=== PATIENT | female | born 1955 | race Caucasian/White ===

== ENCOUNTER 2025-06-01 13:39 | Outpatient (OUT) | payer MEDICARE, OTHER, SELFPAY ==
--- NOTE | 2025-06-01 13:46 | ECG_ITS ---
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 Measurements Intervals [place] Rate: 81 P: 56 NV: 159 QRS: 6 QRSD: 94 T: 34 QT: 341 QTc: 398 Interpretive Statements SINUS RHYTHM POSSIBLE LEFT ATRIAL ENLARGEMENT [-0.1mV P WAVE IN V1/V2] Borderline ECG Compared to ECG 05/31/2021 11:06:29 Myocardial infarct finding no longer present Electronically Signed On 06-01-2025 18:05:46 EDT by GIOVANNA ASTORGA M.D.
[2025-06-01 14:38] LABS: Hematocrit 46.8 % (36.0-48.0); Hemoglobin 15.4 g/dL (12.0-16.0); Immature Granulocytes Abs Auto 0.04 10^3/uL (0.00-0.03); Immature Granulocytes Pct Auto 0.5 % (0.0-0.5); Lymphocytes Absolute Auto 2.5 10^3/uL (1.2-3.8); Mean Corpuscular HGB Conc 32.9 g/dL (29.9-35.2); Mean Corpuscular Hemoglobin 32.6 pg (26.7-34.0); Mean Corpuscular Volume 98.9 fL (81.0-99.0); Platelet Count 182 10^3/uL (150-450); Red Blood Count 4.73 10^6/uL (4.20-5.40); White Blood Count 8.7 10^3/uL (4.0-11.0)
--- NOTE | 2025-06-01 14:43 | PM.PRESUREVA ---
History of Present Illness History of Present Illness Chief complaint: Bilateral Kidney Stones Narrative: Mrs. Dutta is a pleasant 69-year-old female who presents presurgical testing with complaints of bilateral flank pain and bilateral kidney stone. She is scheduled for cystoscopy, left RGP, left ureteroscopy, laser, possible left stent placement for a left kidney stone this is scheduled with Dr. Chu on June 10, 2025. She is then scheduled on June 17, 2025 for cystoscopy, right RG, right ureter, laser, left stent removal, right possible stent placement for a right kidney stone with Dr. Chu. Review of Systems ROS Narrative REVIEW OF SYSTEMS: Negative except as stated in HPI, ten or more systems reviewed. Constitutional: No fever, chills, weakness ENT: No sore throat or epistaxis Cardiovascular: No edema, chest pain, palpitations, or activity intolerance Respiratory: No shortness of breath, cough, or wheezing Musculoskeletal: No joint pain or swelling Gastrointestinal: No abdominal pain, constipation, diarrhea, or vomiting Genitourinary: No dysuria or hematuria, bilateral flank pain and mild CVA tenderness Neurological: No numbness, tingling, weakness, or headache Psychiatric: No mood changes PFSH [facility] Medical History (Updated 06/01/25 @ 13:40 by Marianne Schneider) Hypertension ?I10 - Essential (primary) hypertension (ICD-10) Cerumen impaction ?H61.20 - Impacted cerumen, unspecified ear (ICD-10) Smoker ?F17.200 - Nicotine dependence, unspecified, uncomplicated (ICD-10) History of UTI ?Z87.440 - Personal history of urinary (tract) infections (ICD-10) History of kidney stones ?Z87.442 - Personal history of urinary calculi (ICD-10) History of gout ?Z87.39 - Personal history of other diseases of the musculoskeletal system and connective tissue (ICD-10) Depression ?F32.A - Depression, unspecified (ICD-10) Bipolar disorder ?F31.9 - Bipolar disorder, unspecified (ICD-10) Anxiety ?F41.9 - Anxiety disorder, unspecified (ICD-10) Surgical History (Updated 06/01/25 @ 13:40 by Marianne Schneider) History of insertion of nephrostomy tube ?Z98.890 - Other specified postprocedural states (ICD-10) History of lithotripsy ?Z98.890 - Other specified postprocedural states (ICD-10) History of cryosurgery ?Z98.890 - Other specified postprocedural states (ICD-10) History of cystoscopy ?Z98.890 - Other specified postprocedural states (ICD-10) Family History (Updated 06/01/25 @ 14:35 by Marianne Schneider) Mother Family history of hypertension Other Family history of Alzheimer's disease Family history of diabetes mellitus Family history of prostate cancer Social History (Updated 06/01/25 @ 14:35 by Marianne Schneider) Within the past year, how often did you have a drink containing alcohol: never Score interpretation: A score less than 3 is consistent with normal alcohol consumption. Smoking status: Current every day smoker Non-prescribed substance use: denies use Previous occupational history: [employer] Highest level of school completed/degree received: high school graduate Meds Home Medications and Allergies Home Medications ?Medication ?Instructions ?Recorded ?Confirmed ?Type duloxetine 20 mg capsule,delayed 60 mg PO DAILY 06/01/25 06/01/25 History release Allergies Allergy/AdvReac Type Severity Reaction Status Date / Time cimetidine (From [employer]) Allergy Intermediate swelling Verified 06/01/25 14:25 contrast dye Allergy Intermediate Rash Uncoded 06/01/25 14:25 Exam Narrative Exam Narrative: Constitutional: Awake, alert, comfortable, well-appearing, nontoxic, interactive, vital signs as charted Head: Normocephalic, atraumatic Eyes: Conjunctiva and lids normal to inspection, pupils normal ENT: Tympanic membranes pearly alarcon, nonerythematous, noninjected, naris patent, posterior oropharynx clear, oral mucosa moist Neck: Supple, normal appearance, normal range of motion, no meningeal signs, no lymphadenopathy Respiratory: No respiratory distress, breath sounds clear Cardiovascular: Regular rate and rhythm, strong and regular heart tones Abdomen: Nontender, normal bowel sounds, soft, mild bilateral CVA tenderness Musculoskeletal: Normal gait, no swelling or edema Skin: No rashes or induration, no lesions, only visible skin inspected Neuro: No neurological deficits, normal sensation Psychiatric: Oriented ?3, normal affect Assessment and Plan Assessment and Plan (1) Renal calculus, right: (2) Renal calculus, left: Plan Patient is scheduled for cystoscopy left RG, left ureteroscopic, laser, possible left stent placement on 06/10/2025 for left kidney stone. Patient is scheduled for cystoscopy right RG, right ureter, laser, left stent removal right stent placement possible on June 17, 2025 for right kidney stone with Dr. Chu
--- NOTE | 2025-06-01 14:50 | PM.PRESUREVA ---
History of Present Illness History of Present Illness Chief complaint: [facility] Kid[facility] Medical History (Updated 06/01/25 @ 13:40 by Marianne Schneider) Hypertension ?I10 - Essential (primary) hypertension (ICD-10) Cerumen impaction ?H61.20 - Impacted cerumen, unspecified ear (ICD-10) Smoker ?F17.200 - Nicotine dependence, unspecified, uncomplicated (ICD-10) History of UTI ?Z87.440 - Personal history of urinary (tract) infections (ICD-10) History of kidney stones ?Z87.442 - Personal history of urinary calculi (ICD-10) History of gout ?Z87.39 - Personal history of other diseases of the musculoskeletal system and connective tissue (ICD-10) Depression ?F32.A - Depression, unspecified (ICD-10) Bipolar disorder ?F31.9 - Bipolar disorder, unspecified (ICD-10) Anxiety ?F41.9 - Anxiety disorder, unspecified (ICD-10) Surgical History (Updated 06/01/25 @ 13:40 by Marianne Schneider) History of insertion of nephrostomy tube ?Z98.890 - Other specified postprocedural states (ICD-10) History of lithotripsy ?Z98.890 - Other specified postprocedural states (ICD-10) History of cryosurgery ?Z98.890 - Other specified postprocedural states (ICD-10) History of cystoscopy ?Z98.890 - Other specified postprocedural states (ICD-10) Family History (Updated 06/01/25 @ 14:35 by Marianne Schneider) Mother Family history of hypertension Other Family history of Alzheimer's disease Family history of diabetes mellitus Family history of prostate cancer Social History (Updated 06/01/25 @ 14:35 by Marianne Schneider) Within the past year, how often did you have a drink containing alcohol: never Score interpretation: A score less than 3 is consistent with normal alcohol consumption. Smoking status: Current every day smoker Non-prescribed substance use: denies use Previous occupational history: [employer] Highest level of school completed/degree received: high school graduate Meds Home Medications and Allergies Home Medications ?Medication ?Instructions ?Recorded ?Confirmed ?Type duloxetine 20 mg capsule,delayed 60 mg PO DAILY 06/01/25 06/01/25 History release Allergies Allergy/AdvReac Type Severity Reaction Status Date / Time cimetidine (From Tagamet) Allergy Intermediate swelling Verified 06/01/25 14:25 contrast dye Allergy Intermediate Rash Uncoded 06/01/25 14:25 Assessment and Plan Assessment and Plan (1) Renal calculus, right: (2) Renal calculus, left: Plan Patient is scheduled for cystoscopy left RG, left ureteroscopic, laser, possible left stent placement on 06/10/2025 for left kidney stone. Patient is scheduled for cystoscopy right RG, right ureter, laser, left stent removal right stent placement possible on June 17, 2025 for right kidney stone with Dr. Chu
[2025-06-01 14:51] LABS: INR 0.96; Partial Thromboplastin Time 26.9 sec (22.3-36.2); Prothrombin Time 10.2 sec (9.0-11.6)
[2025-06-01 15:32] LABS: Anion Gap 13.7; Blood Urea Nitrogen 19.0 mg/dL (7.0-18.0); Calcium 11.4 mg/dL (8.5-10.1); Carbon Dioxide 23.7 mmol/L (21.0-32.0); Chloride 109 mmol/L (98-107); Estimated GFR (African America >60 (>=60 mL/min/1.73m^2); Estimated GFR (Non-African Ame 54 (>=60 mL/min/1.73m^2); Glucose 92 mg/dL (74-106); Potassium 4.4 mmol/L (3.5-5.1); Sodium 142 mmol/L (136-145)
== END 2025-06-01 13:40 | disposition home or self-care (01) ==
LOC: PST 13:42
PROVIDERS: PCP Physician Assistant; Visit Provider Urology
DX: Z01.810 Encounter for preprocedural cardiovascular examination (principal); Z01.812 Encounter for preprocedural laboratory examination; Z01.818 Encounter for other preprocedural examination; N20.0 Calculus of kidney
CPT/HCPCS: 36415; 80048; 85025; 85610; 85730; 93005; G0463

== ENCOUNTER 2025-06-01 13:55 | Outpatient (OUT) | payer MEDICARE, OTHER, SELFPAY | END 2025-06-01 13:56 | disposition home or self-care (01) | LOC: PST 13:55 | PROVIDERS: PCP Physician Assistant; Visit Provider Urology | DX: Z01.818 Encounter for other preprocedural examination (principal); N20.0 Calculus of kidney ==

== ENCOUNTER 2025-06-01 13:59 | Outpatient (OUT) | payer MEDICARE, OTHER, SELFPAY ==
--- OUTSIDE RECORDS SUMMARY | 2025-05-24 12:15 | XMS_ITS | Encounter Summary ---
Author Organization [facility] Address [address] [place] [address] Care Team Providers Care Health Physics Technician Name Role Phone Viv Anderson MD Primary Care Provider [phone] Afsaneh Long Unavailable [phone] Reason for Visit * Imaging (Routine) - Closed Specialty Diagnoses / Procedures Referred By Contac t Referred To Contact Radiology Diagnoses Unspecified abnormal findings in urine Procedures CT abdomen pelvis wo IV contrast CT abdomen pelvis w and wo IV contrast Sofia Cronin, MAUREEN [address] [place] [address] Phone: tel: [facility] [address] [place] [address] Phone: tel: fax: Referral ID Status Reason Start Date Expiration Date Visits Re quested Visits Authorized [id number] Closed 05/12/2025 11/08/2025 1 1 Encounter Details Date Type Department Care Team (Latest Contact Info) Description 05/24/2025 12:15 PM EDT Ancillary Procedure [facility] [address] [place] [address] Unspecified abnormal findings in urine Social History Tobacco Use Types Packs/Day Years Used Date Smoking Tobacco: Every Day Cigarettes Smokeless Tobacco: Never Alcohol Use Standard Drinks/Week Comments Not Currently 0 (1 standard drink = 0.6 oz pur e alcohol) PHQ-2 Answer Date Recorded Patient Health Questionnaire-2 Score 0 11/09/2024 Comments No Sex and Gender Information Value Date Recorded Sex Assigned at Not on file Legal Sex Female 6:47 PM EDT Gender Identity Not on file Sexual Orientation Not on file documented as of this encounter Plan of Treatment Upcoming Encounters Date Type Department Care Team (Late st Contact Info) Description 06/21/2025 1:30 PM EDT Ancillary Procedure [facility] [address] [place] [address] 04/25/2026 10:15 AM EDT Office Visit [facility] [address] [place] [phone] Vandana Francois MD [address] [place] [address] documented as of this encounter Procedures Procedure Name Priority Date/Time Associated Diagnosis Comments CT ABDOMEN PELVIS WO IV CONTRAST Routine 05/24/2025 12:17 PM EDT Unspecified abnormal findings in urine documented in this encounter Results * CT abdomen pelvis wo IV contrast (05/24/2025 12:17 PM EDT) Anatomical Region Laterality Modality Body, Pelvis, Abdomen Computed T omography 05/25/2025 12:1 6 PM EDT Impressions 05/25/2025 12:22 PM EDT Extensive nonobstructing bilateral renal calculi. ELECTRONICALLY SIGNED BY: Charles Banks MD Narrative 05/25/2025 12:22 PM EDT HISTORY: Abnormal ultrasound. History of kidney stones. TECHNIQUE: Non-IV contrast imaging of the abdomen and pelvis was performed using standard technique, scanning from just above the dome of the diaphragm to the symphysis pubis. Unenhanced imaging is limited for the evaluation of some intra-abdominal and pelvic pathology. All CT scans at this facility use dose modulation, iterative reconstruction, and/or weight based dosing when appropriate to reduce radiation dose to as low as reasonably achievable. COMPARISON: Ultrasound and radiographs 05/06/2025. CT from 10/23/2022. RESULT: Abdomen / Pelvis: Liver: Unremarkable. Biliary: Cholelithiasis, similar to prior. Gallbladder otherwise unremarkable. Pancreas: Unremarkable. Spleen: No splenomegaly. Adrenals: Areas of nodular thickening bilaterally, similar to prior, benign. Kidneys: Extensive bilateral renal calculi with the largest on the left in the lower pole measuring around 6 mm and the largest on the right in the upper pole region measuring around 6 mm. No hydronephrosis. Simple appearing left renal cyst. Lobular contour with areas of parenchymal thinning. GI Tract: No small bowel dilation. Normal appendix. Diverticulosis without diverticulitis. Lymph Nodes: No lymphadenopathy. Mesentery/peritoneum/retroperitoneum: No ascites or mass. Vasculature: Mild arterial atherosclerotic disease without aneurysm. Pelvis: No significant free fluid. Hysterectomy. Bladder decompressed. Trace fat-containing periumbilical dehiscence. Bones/Soft Tissues: No acute osseous findings. Decreased bone mineral density. Degenerative changes. Lower thorax: Calcified granuloma right lung base. Bibasilar scarring/atelectasis. Procedure Note Charles Banks MD - 05/25/2025 HISTORY: Abnormal ultrasound. History of kidney stones. TECHNIQUE: Non-IV contrast imaging of the abdomen and pelvis was performedusing standard technique, scanning from just above the dome of thediaphragm to the symphysis pubis. Unenhanced imaging is limited for theevaluation of some intra-abdominal and pelvic pathology. All CT scans at this facility use dose modulation, iterativereconstruction, and/or weight based dosing when appropriate to reduceradiation dose to as low as reasonably achievable. COMPARISON: Ultrasound and radiographs 05/06/2025. CT from 10/23/2022. RESULT: Abdomen / Pelvis: Liver: Unremarkable. Biliary: Cholelithiasis, similar to prior. Gallbladder otherwiseunremarkable. Pancreas: Unremarkable. Spleen: No splenomegaly. Adrenals: Areas of nodular thickening bilaterally, similar to prior,benign. Kidneys: Extensive bilateral renal calculi with the largest on the left inthe lower pole measuring around 6 mm and the largest on the right in theupper pole region measuring around 6 mm. No hydronephrosis. Simpleappearing left renal cyst. Lobular contour with areas of parenchymalthinning. GI Tract: No small bowel dilation. Normal appendix. Diverticulosis withoutdiverticulitis. Lymph Nodes: No lymphadenopathy. Mesentery/peritoneum/retroperitoneum: No ascites or mass. Vasculature: Mild arterial atherosclerotic disease without aneurysm. Pelvis: No significant free fluid. Hysterectomy. Bladder decompressed.Trace fat-containing periumbilical dehiscence. Bones/Soft Tissues: No acute osseous findings. Decreased bone mineraldensity. Degenerative changes. Lower thorax: Calcified granuloma right lung base. Bibasilarscarring/atelectasis. IMPRESSION: Extensive nonobstructing bilateral renal calculi. ELECTRONICALLY SIGNED BY: Charles Banks MD Sofia Cronin NP IMG CT PROCEDURES Final Result documented in this encounter Visit Diagnoses Diagnosis Unspecified abnormal findings in urine documented in this encounter Additional Health Concerns Assessment Noted Time PHQ-9 Depression Total Score: 0 07/08/20 23 2:00 PM EDT documented as of this encounter Care Teams Health Physics Technician Relationship Specialty Start Date End Date Viv Anderson MD [address] [place] [address] PCP - General Family Medicine 01/15/23 Afsaneh Long [place] [address] [place] [address] PCP - ACO Reach 11/08/23 documented as of this encounter
--- OUTSIDE RECORDS SUMMARY | 2025-06-01 14:02 | XMS_ITS | Encounter Summary ---
Author Organization [facility] Address [address] [facility] [place] [address] Care Team Providers Care Cotton Farmer Name Role Phone Viv Anderson MD Primary Care Provider [phone] Afsaneh Long PA Unavailable [phone] Encounter Details Date Type Department Care Team (Latest Contact Info) Description 05/24/2025 Travel Social History Tobacco Use Types Packs/Day Years [...] Description 06/21/2025 1:30 PM EDT Ancillary [facility] [address] [facility] [address] [place] [address] 04/25/2026 10:15 AM EDT Office Visit [facility] [address] [place] [phone] Vandana Francois MD [address] [place] [address] documented as of this encounter Visit Diagnoses Not on filedocumented in this encounter Additional Health Concerns Assessment Noted Time PHQ-9 Depression Total Score: 0 07/08/20 2:00 PM EDT documented as of this encounter Care Teams Cotton Farmer Relationship Specialty Start Date End Date Viv Anderson MD [address] [place] [address] PCP - General Family Medicine 01/15/23 Afsaneh Long PA [address] [place] [address] PCP - ACO Reach 11/08/23 documented as of this encounter
== END 2025-06-01 14:00 | disposition home or self-care (01) ==
LOC: PST 14:00
PROVIDERS: PCP Physician Assistant; Visit Provider Urology
DX: Z01.818 Encounter for other preprocedural examination (principal); N20.0 Calculus of kidney

== ENCOUNTER 2025-06-10 07:13 | Day surgery (SDC) | payer MEDICARE, OTHER, SELFPAY ==
[2025-06-01 14:27] VITALS: BP 137/85; PULSE 98; TEMP 36.4; O2SAT 95; BMI 28.2
[2025-06-10] VITALS (20 sets, daily range): BP systolic 116–143; BP diastolic 60–101; PULSE 62–97; TEMP 36.2–36.3; O2SAT 90–96; BMI 28.8
--- OUTSIDE RECORDS SUMMARY | 2025-06-10 07:16 | XMS_ITS | Encounter Summary ---
Author Organization [facility] Address [address] [facility] [place] [address] Care Team Providers Care Tourist Camp Attendant Name Role Phone Viv Anderson MD Primary Care Provider [phone] Afsaneh Long PA Unavailable [phone] Encounter Details Date Type Department Care Team (Late st Contact Info) Description 06/01/2025 Clinisync Result Encounter [facility] External Department Unsolicited Provider, Generic External Data Social History Tobacco Use Types Packs/Day Years [...] Procedure [facility] [address] [place] [address] 04/25/2026 10:15 AM EDT Office Visit [facility] [address] [place] [address] Vandana Francois MD [address] [place] [address] documented as of this encounter Procedures Procedure Name Priority Date/Time Associated Diagnosis Comments [facility] PROTHROMBIN TIME INR W/O COUM Routine 06/01/2025 2:31 PM EDT [facility] APTT Routine 06/01/2025 2:31 PM EDT ALL CBC WITH AUTO DIFF Routine 06/01/2025 2:31 PM EDT ALL BASIC METABOLIC PANEL Routine 06/01/2025 2:31 PM EDT documented in this encounter Results * (ABNORMAL) ALL BASIC METABOLIC PANEL (06/01/2025 2:31 PM EDT) SODIUM 142 136 - 145 mmol/L [facility]H POTASSIUM 4.4 3.5 - 5.1 mmol/L [facility]H CHLORIDE 109(H) 98 - 107 mmol/L [facility]H CARBON DIOXIDE 23.7 21.0 - 32.0 mmol/L [facility]H ANION GAP 13.7 TBH GLUCOSE 92 74 - 106 mg/dL [facility] BLOOD UREA NITROGEN 19.0(H) 7.0 - 18.0 mg/dL [facility] CREATININE 1.02 0.55 - 1.02 mg/dL TBH TBH EGFR-AF BELARUSIAN >60 >=60 mL/min/1.7 3m 2 TBH TBH EGFR-NON AF BELARUSIAN 54(L) >=60 mL/min/1.7 3m 2 TB[facility] BUN CREATININE RATIO 18.6 TBH CALCIUM 11.4(H) 8.5 - 10.1 mg/dL [facility] 06/01/2025 2:31 PM EDT 06/01/2025 2:32 PM EDT Narrative [facility] - 06/01/2025 3:46 PM EDT us Generic External Data Provider [facility] F inal Result [facility] * [facility] APTT (06/01/2025 2:31 PM EDT) PARTIAL THROMBOPLASTIN TIME 26.9 22.3 - 36.2 sec [facility] 06/01/2025 2:31 PM EDT 06/01/2025 2:32 PM EDT Narrative [facility] - 06/01/2025 2:53 PM EDT Generic External Data Provider CLINISYNC F inal Result Performing Organization Address City/[facility]/ZIP Co de Phone Number [facility] * [facility] PROTHROMBIN TIME INR W/O COUM (06/01/2025 2:31 PM EDT) PROTHROMBIN TIME 10.2 9.0 - 11.6 sec TB TB INR 0.96 TB Comment: DESIRED INR: 2.0-3.0 CONDITIONS NOT LISTED BELOW 2.5-3.5 FOR PROSTHETIC HEART VALVE REPLACEMENT 2.5-3.5 RECURRENT THROMBOSIS 06/01/2025 2:31 PM EDT 06/01/2025 2:32 PM EDT Narrative [facility] - 06/01/2025 2:53 PM EDT Generic External Data Provider CLINISYNC F inal Result Performing Organization Address [facility] de Phone Number [facility] * (ABNORMAL) ALL CBC WITH AUTO DIFF (06/01/2025 2:31 PM EDT) TBH WBC 8.7 4.0 - 11.0 10 3/uL TBH TB RBC 4.73 4.20 - 5.40 10 6/uL TBH TB HGB 15.4 12.0 - 16.0 g/dL TB TB HCT 46.8 36.0 - 48.0 % TB TB MCV 98.9 81.0 - 99.0 fL TB TB MCH 32.6 26.7 - 34.0 pg TBH TB MCHC 32.9 29.9 - 35.2 g/dL TB TB RDW 13.0 11.0 - 15.0 % TB TB PLT 182 150 - 450 10 3/uL TB TB MPV 10.7 9.5 - 13.5 fL TB NEUTROPHILS PERCENT AUTO 57.3 43.0 - 75.0 % TBH LYMPHOCYTES PERCENT AUTO 28.7 20.5 - 60.0 % TB MONOCYTES PERCENT AUTO 11.3 1.7 - 12.0 % TB TBH EO % 1.5 0.9 - 7.0 % TBH BASOPHILS PERCENT AUTO 0.7 0.2 - 2.0 % TBH IMMATURE GRANULOCYTES PCT AUTO 0.5 0.0 - 0.5 % TBH NEUTROPHILS ABSOLUTE AUTO 5.0 1.4 - 6.5 10 3/uL TBH LYMPHOCYTES ABSOLUTE AUTO 2.5 1.2 - 3.8 10 3/uL TBH MONOCYTES ABSOLUTE AUTO 1.0(H) 0.3 - 0.8 10 3/uL TBH TBH EO # 0.1 0.0 - 0.7 10 3/uL TBH BASOPHILS ABSOLUTE AUTO 0.1 0.0 - 0.1 10 3/uL TBH IMMATURE GRANULOCYTES ABS AUTO 0.04(H) 0.00 - 0.03 10 3/uL TBH 06/01/2025 2:31 PM EDT 06/01/2025 2:32 PM EDT Narrative [facility]NC - 06/01/2025 2:41 PM EDT us Generic External Data Provider [facility] F inal Result [facility] documented in this encounter Visit Diagnoses Not on filedocumented in this encounter Additional Health Concerns Assessment Noted Time PHQ-9 Depression Total Score: 0 07/08/20 2:00 PM EDT documented as of this encounter Care Teams Tourist Camp Attendant Relationship Specialty Start Date End Date Viv Anderson MD [address] [place] [address] PCP - General Family Medicine 01/15/23 Afsaneh Long PA [address] [place] [address] PCP - ACO Reach 11/08/23 documented as of this encounter
--- OUTSIDE RECORDS SUMMARY | 2025-06-10 07:16 | XMS_ITS | Encounter Summary ---
Author Organization [facility] Address [address] [facility] [place] [address] Care Team Providers Care Cutter Machine Tender Name Role Phone Viv Anderson MD Primary Care Provider [phone] Afsaneh Long PA Unavailable [phone] Encounter Details Date Type Department Care Team [...] Procedure [facility] [address] [place] [id number] 04/25/2026 10:15 AM EDT Office Visit [facility] [address] [place] [id number] Vandana Francois MD [address] [place] [address] documented as of this encounter Procedures Procedure Name Priority Date/Time Associated Diagnosis Comments ECG 12-LEAD 06/01/2025 12:24 PM EDT documented in this encounter Results * ECG 12-LEAD (06/01/2025 12:24 PM EDT) Anatomical Region Laterality Modality Other 06/01/2025 12:2 4 PM EDT Narrative 06/01/2025 6:05 PM EDT [facility] [place] [id number] Electrocardiograph Report Signed Patient: YANETH DUTTA MR#: [id number] : 1955 Acct:[id number] Age/Sex: 69 / F ADM Date: 06/01/25 Loc: PST Attending Dr: Mikki Elizalde M.D. Ordering Physician: Mikki Elizalde M.D. 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 Measurements Intervals [place] Rate: 81 P: 56 NC: 159 QRS: 6 QRSD: 94 T: 34 QT: 341 QTc: 398 Interpretive Statements SINUS RHYTHM POSSIBLE LEFT ATRIAL ENLARGEMENT [-0.1mV P WAVE IN V1/V2] Borderline ECG Compared to ECG 05/31/2021 11:06:29 Myocardial infarct finding no longer present Electronically Signed On 06-01-2025 18:05:46 EDT by GIOVANNA ASTORGA M.D. Dictated By: GIOVANNA ASTORGA Signed By: 06/01/25 1805 DD/ 1224 TD/TT: Field Spec: Procedure Note Radiology, Radiologist, MD - 06/01/2025 [place] [address] Electrocardiograph Report Signed Patient: YANETH DUTTA AMR#: [id number] : 1955cct:[id number] Age/Sex: 69 / FADM Date: 06/01/25 Loc: PST Attending Dr: Mikki Elizalde M.D. Ordering Physician: Mikki Elizalde M.D. 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 Measurements Intervals [place] Rate: 81 P: 56 NC: 159 QRS: 6 QRSD: 94 T: 34 QT: 341 QTc: 398 Interpretive Statements SINUS RHYTHM POSSIBLE LEFT ATRIAL ENLARGEMENT [-0.1mV P WAVE IN V1/V2] Borderline ECG Compared to ECG 05/31/2021 11:06:29 Myocardial infarct finding no longer present Electronically Signed On 06-01-2025 18:05:46 EDT by GIOVANNA ASTORGA M.D. Dictated By: GIOVANNA ASTORGA Signed By:06/01/25 1805 DD/ 1224 TD/TT: Field Spec: us Generic External Data Provider [facility] Final Result documented in this encounter Visit Diagnoses Not on filedocumented in this encounter Additional Health Concerns Assessment Noted Time PHQ-9 Depression Total Score: 0 07/08/20 23 2:00 PM EDT documented as of this encounter Care Teams Cutter Machine Tender Relationship Specialty Start Date End Date Viv Anderson MD [address] [place] [address] PCP - General Family Medicine 01/15/23 Afsaneh Long PA [address] [place] [address] PCP - ACO Reach 11/08/23 documented as of this encounter
[2025-06-10] MEDS: SCOPOLAMINE 1 MG/3 DAYS TRANSDERM PATCH 1 PATCH TD (07:46)
[2025-06-10] MEDS: CEFAZOLIN SODIUM 2 GM/50 ML D5W PREMIX IV (08:31)
--- NOTE | 2025-06-10 09:46 | P.URON_ITS ---
Urology Surgery Operative Note Operative Note Procedure Date: 06/10/25 Time Out Performed: yes Pre-op Diagnosis: Bilateral nephrolithiasis Post-op Diagnosis: same as pre-op Procedures performed: 1. Cystoscopy. 2. Left ureteroscopy. 3. Left pyeloscopy. 4. Thulium laser lithotripsy of the left renal calculi. 5. Stone fragment basket extraction. 6. Placement of 6 [place] variable length left ureteral stent Anesthesia: KARLIE Primary Surgeon: Chuck Chu Complications: None Estimated blood loss (mL): 5 Findings: Several Porfirio's plaques. A upper pole large stone embedded in the papilla Specimens: Stone fragment from the lower pole stone Drains: 6 [place] variable length left ureteral stent Indications for Procedures: This lady has bilateral nonobstructing nephrolithiasis. She now presents for left sided ureteroscopic laser stone manipulation and stent placement. She has signed an informed consent after risks were explained. Detailed description of Procedure: The patient was brought to the operating room and placed on the operating room table in the supine position. SCDs were placed on the lower extremities and turned on and functioning during the entire case. Timeout was done by all parties in the room. We all agreed upon the patient's identification and the planned procedures for this patient. Genn. anesthesia was then administered. The patient was then repositioned into the modified dorsal lithotomy position. All pressure points were satisfactorily padded. Genitalia were sterilely prepped and draped in usual fashion. I started by passing a 22 [place] Olympus cystoscope per urethra and into the bladder. Careful panendoscopy in the bladder revealed no evidence of any tumors stones or lesions. I then passed a Glidewire through the scope and into the left ureter and up to the left kidney. Fluoroscopically I could see several stones within the kidney. I then passed a 10/12 [place] ureteral access sheath over the wire up to the L5 position. The stylette and wire were then removed. I now passed a flexible ureteroscope through the access sheath and into the ureter. I then ascended up the ureter. I then went into the kidney. I started in the upper pole and looked through all the calyces. A sizable stone was identified and it was embedded within a papilla of an upper pole calyx. This was not accessible. I then went into the midpole calyces. There were a few Porfirio plaques. I then went into the lower pole calyces. Here is where I found a large stone. I then passed a 270 Angstrom laser fiber through the scope and made contact with the stone. I started out with the thulium laser at 7.5 W on the dusting mode. The stone was very hard and the power had to increase up to 10 W and then ultimately 15 W. I then developed steady fragmentation. The inner core was extremely hard. I switched to the fragment mode at 10 W. I was able to crack the middle up. I then went back to the dusting mode and completed dusting of this large stone. A 0 tip nitinol basket was used to get the 2 remaining pieces out and these were sent for stone analysis. Endoscopically we had copious amounts of dust and submillimeter sand pieces. Fluoroscopically the stone was gone in the lower pole. I then remove the ureteroscope and then slid a Glidewire through the sheath into the kidney and remove the access sheath. The cystoscope was backloaded over the wire and passed in the bladder and a 6 [place] variable length stent was passed over the wire up to the kidney. The wire was removed and there were good curls in the kidney and in the bladder. Bladder was drained of its contents and the scope was then removed. Anesthetic was then reversed. She [facility] and wheeled to PACU in stable condition.
--- NOTE | 2025-06-10 10:21 | PC.NURSE ---
171/101 BLOOD PRESSURE AT 1020 DUE TO PATIENT IS FIGHTING THE CUFF AND RESISTING WHILE CUFF WAS PUMPING UP. PATIENT TRYING TO RUB FACE AND EYES AT THIS TIME.
--- NOTE | 2025-06-10 10:24 | PC.NURSE ---
PATIENT IS STARTING TO WAKE UP A LITTLE MORE BUT CONTINUES TO SNORE ALOT.
--- NOTE | 2025-06-10 10:30 | PC.NURSE ---
PATIENT STILL SUDATED ONLY AROUSABLE TO NAME AT THIS TIME.
--- NOTE | 2025-06-10 10:53 | PC.NURSE ---
UPDATED Elena ASSEMBLER HANDBAGS ABOUT PATIENT STILL ON 4 LITERS WITH MASK ON AND HE IS COMFORTABLE FOR HER TO BE MOVED TO PHASE 2 WITH CONTINUED WEANING OF OXYGEN.
[2025-06-10] MEDS: SOLIFENACIN SUCCINATE 10 MG TABLET PO (10:55)
--- NOTE | 2025-06-10 12:34 | PC.NURSE ---
1230: pt ambulates to bathroom with minimal assistance. urine dark yellow,no clots noted.
== END 2025-06-10 12:58 | disposition home or self-care (01) ==
PROVIDERS: PCP Physician Assistant; Visit Provider Urology
PROC: (CPT 52356; principal; 2025-06-10 08:25)
DX: N20.0 Calculus of kidney (principal); F17.210 Nicotine dependence, cigarettes, uncomplicated; I10 Essential (primary) hypertension; M10.9 Gout, unspecified; F41.9 Anxiety disorder, unspecified; F31.9 Bipolar disorder, unspecified
CPT/HCPCS: 52356; 36415; 76000; 82365; 99999; J0131; J0690; J1100; J1171; J1200; J1885; J2405; J2704

== ENCOUNTER 2025-06-17 07:19 | Day surgery (SDC) | payer MEDICARE, OTHER, SELFPAY ==
[2025-06-01 15:03] VITALS: BP 137/85; PULSE 98; TEMP 36.4; O2SAT 95; BMI 28.2
[2025-06-17] VITALS (12 sets, daily range): BP systolic 107–151; BP diastolic 65–89; PULSE 79–98; TEMP 36.4; O2SAT 88–98; BMI 28.5
[2025-06-17] MEDS: SCOPOLAMINE 1 MG/3 DAYS TRANSDERM PATCH 1 PATCH TD (07:39)
[2025-06-17] MEDS: CEFAZOLIN SODIUM 2 GM/50 ML D5W PREMIX IV (09:28)
--- NOTE | 2025-06-17 10:52 | PM.URSON ---
Urology Surgery Operative Note Operative Note Procedure Date: 06/17/25 Time Out Performed: yes Pre-op Diagnosis: Right nephrolithiasis; status post left ureteroscopic stone manipulation and stent placement Post-op Diagnosis: same as pre-op Procedures performed: 1. Cystoscopy. 2. Left stent removal. 3. Right ureteroscopy. 4. Right pyeloscopy. 5. Thulium laser lithotripsy of large right renal calculus. 6. Placement of 6 [place] variable length right ureteral stent Anesthesia: BARONA Primary Surgeon: Chuck Chu Complications: None Estimated blood loss (mL): 5 Findings: 1. Multiple Porfirio's plaques. 2. Mid pole 5 mm stone embedded in the renal parenchyma. Unable to safely manipulate the stone Specimens: None Drains: 6 [place] variable length right ureteral stent Indications for Procedures: This lady had left-sided stone surgery just the other week. She now presents for cystoscopy left stent removal and right ureteroscopic stone manipulation and stent placement. She has signed an informed consent after risks were explained. Detailed description of Procedure: The patient was brought to the operating room and placed on the operating room table in the supine position. SCDs were placed on the lower extremities and turned on and functioning during the entire case. Timeout was done by all parties in the room. We all agreed upon the patient's identification and the planned procedures for this patient. Genn. anesthesia was then administered. The patient was then repositioned into the modified dorsal lithotomy position. All pressure points were satisfactorily padded. Genitalia were sterilely prepped and draped in usual fashion. I started by passing a 22 [place] Olympus cystoscope per urethra and into the bladder. The nonencrusted left sided stent was identified. A flexible grasper was passed and the stent was then removed. I then passed a Glidewire up the right ureter into the kidney. The scope was removed. I then used a 10/12 [place] ureteral access sheath and passed this over the wire up to the L5 position. The stylette and wire were then removed. I then passed a flexible ureteroscope through the access sheath into the ureter and ascended up into the kidney. I scope through the upper mid and lower pole calyces. There were numerous Porfirio's plaques. There was a large stone in the upper pole calyx which was seen on fluoroscopy and through the scope. There was a midpole stone that was embedded in the renal parenchyma and just 1 edge was protruding through the renal lining. I tried multiple times releasing the stone with the beak of the scope and the a 0 tip nitinol basket but was unable. I could not laser this because this would definitely cause the kidney to bleed. In the lower pole calyces there were a few Porfirio's plaques also. I then turned the attention to the upper pole stone. I passed a 270 Angstrom laser fiber through the scope and used the thulium laser at 10 W on the dusting mode. I had to go up to 15 W and this hard stone was ultimately cracked up and dusted. There were only subcentimeter flecks of stone and sand remaining. There were no other free stones within the kidney. The procedure was then terminated. The scope was removed after placing a wire into the kidney. The access sheath was removed and I then backloaded the cystoscope over the wire. I then slid a 6 [place] variable length stent over the wire up to the kidney. The wire was removed and there were good curls in the kidney and in the bladder. The bladder was drained of its contents and the scope was then removed. The anesthetic was then reversed. She was then transferred to PACU in stable condition.
== END 2025-06-17 12:05 | disposition home or self-care (01) ==
LOC: SURGOUT 07:20
PROVIDERS: PCP Physician Assistant; Visit Provider Urology
PROC: (CPT 52356; principal; 2025-06-17 09:05)
DX: N20.0 Calculus of kidney (principal); F17.210 Nicotine dependence, cigarettes, uncomplicated; I10 Essential (primary) hypertension; M10.9 Gout, unspecified; F41.9 Anxiety disorder, unspecified; F31.9 Bipolar disorder, unspecified
CPT/HCPCS: 52356; 36415; 76000; J0690; J1100; J1885; J2250; J2405; J2704; J3010